=== PATIENT | male | born 2000 | race Caucasian/White ===

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

== ENCOUNTER 2021-02-02 06:09 | Emergency (ER) | payer MEDICAID ==
[~2021-02-02] VITALS: Ht 170.2 cm; Wt 80.4 kg
[2021-02-02 06:09] VITALS: BP 161/96
[2021-02-02] MEDS: LIDO:MAALOX 1:1 20 ML SINGLE DOSE. PO ONE (06:50)
--- NOTE | 2021-02-02 07:04 | PHYS DOC ---
Past History Past Medical History: Anxiety, GERD, Hypertension, MRSA, Other Additional Past Medical Histor: spinabiffida, poor circulation in legs, cant feel bilateral LE Past Surgical History: Other Additional Past Surgical Histo: twsted aorta repair & hole in spine repair at , BLL knee plates in/out Smoking: Non-smoker Alcohol Use: None Drug Use: None General Adult EDM: Chief Complaint: HEARTBURN/GI DISTRESS HPI: HPI: Patient is a 20 year old male who presents with symptoms of GERD, abdominal pain, and dyspnea with exertion. Patient arrived via EMS after experiencing "the worst GERD of his life" this morning. He has a history of "daily" GERD symptoms and reported feeling pain in is throat today. He reportedly took his Protonix and 2 Tums which he said did not relieve his pain. He now reports his throat pain has almost all resolved and reports 1/10 pain in throat. He also complains of generalized abdominal pain which he rates as 9/10 that is worse with palpation. He is concerned he may have a stomach ulcer although he reportedly has never received a scope or had a history of ulcers. Denies nausea, vomiting, constipation, blood or mucous in stools, dyspepsia, and diarrhea. He also complains of dyspnea with exertion over the past month when using his wheelchair. Review of Systems: Review of Systems: Constitutional: Denies fever or chills Eyes: Denies blurry vision or eye pain HENT: Reports sore throat, denies congestion Respiratory: Denies cough. Reports shortness of breath with exertion Cardiovascular: Denies chest pain or palpitations GI: Reports abdominal pain. Denies nausea, or vomiting Musculoskeletal: Denies back pain or joint pain Integument: Denies rash or skin lesions Neurologic: Denies headache, focal weakness or sensory changes Complete systems were reviewed and found to be within normal limits, except as documented in this note. Current Medications: Current Meds: Current Medications Medications (Trade) Dose Ordered Sig/Alex Start Time Stop Time Status Last Admin Dose Admin Multi-Ingredient Mouthwash/Gargle (Gi Cocktail) 20 ml 1X ONCE 02/02/21 07:00 02/02/21 07:01 02/02/21 06:50 20 ML Allergies: Allergies: Allergies Coded Allergies Type Severity Reaction Last Updated Verified latex Allergy Unknown 12/15/19 Yes Physical Exam: PE: Constitutional: Well developed, well nourished, no acute distress, non-toxic appearance HENT: Normocephalic, atraumatic Eyes: PERRL, EOMI, conjunctiva normal, no discharge Neck: Normal range of motion, no tenderness, supple Lungs & Thorax: No respiratory distress, equal chest rise and fall Abdomen: Soft. Reports mild increase of diffuse abdominal pain to palpation Skin: Warm, dry, no erythema, no rash Back: No tenderness, no CVA tenderness Extremities: No tenderness, ROM intact, no edema Neurologic: Alert and oriented X 3, normal motor function, normal sensory function, no focal deficits noted Psychologic: Affect normal, judgment normal Current Patient Data: Vital Signs: Vital Signs Date Time Temp Pulse Resp B/P (MAP) Pulse Ox O2 Delivery O2 Flow Rate FiO2 02/02/21 06:09 98.6 101 18 161/96 (117) 99 Room Air EKG: EKG: [] Radiology/Procedures: Radiology/Procedures: PROCEDURE: CHEST AP ONLY Exam Date: 02/02/2021 6:52 AM XR CHEST 1V Indication: Reason: "dyspnea", heartburn, hx of shunt / Spl. Instructions: / History: FINDINGS/ IMPRESSION: There is elevation of the right hemidiaphragm. Ventriculoperitoneal shunt catheter overlies the right hemidiaphragm. The cardiac silhouette and pulmonary vasculature are within normal limits. There is no focal consolidation, pleural effusion or pneumothorax. The visualized osseous structures are intact. Electronically signed by: Ramez Winston MD (02/02/2021 7:08 AM) [id number] Heart Score: C/O Chest Pain: N/A Course & Med Decision Making: Course & Med Decision Making Pertinent Imaging studies reviewed. (See chart for details) Symptomatic treatment performed with intermittent improvement of GERD and abdominal symptoms. Patient is hemodynamically stable and has no signs of perforated ulcer so was given instruction and contact information to follow-up with a GI physician for further abdominal pains. Patient had normal O2 saturations at >98%. CXR was performed to further assess patient's concerns of dyspnea with exertion and showed normal lung findings. Patient stable for discharge with outpatient follow-up with PCP. Discussed findings and plan with patient, who acknowledges understanding and agreement. Dragon Disclaimer: Artis Disclaimer: This electronic medical record was generated, in whole or in part, using a voice recognition dictation system. Departure Departure: Impression: Primary Impression: GERD (gastroesophageal reflux disease) Qualified Codes: K21.9 - Gastro-esophageal reflux disease without esophagitis Disposition: 01 DC HOME SELF CARE/HOMELESS Condition: STABLE Referrals: MUNDO DURHAM MD (PCP) CARLYLE CORDERO MD Patient Instructions: Gastritis, Adult, [id number] Scripts Sucralfate (CARAFATE) 1 Gm/10 Ml Oral.susp 10 ML PO QID for GERD, #1 L 0 Refills before food Prov: SARAH GROSSMAN DO 02/02/21 SARAH GROSSMAN DO Feb 02, 2021 07:04
--- NOTE | 2021-02-02 07:10 | RAD ---
Exam Date: 02/02/2021 6:52 AM XR CHEST 1V Indication: Reason: "dyspnea", heartburn, hx of shunt / Spl. Instructions: / History: FINDINGS/ IMPRESSION: There is elevation of the right hemidiaphragm. Ventriculoperitoneal shunt catheter overlies the right hemidiaphragm. The cardiac silhouette and pulmonary vasculature are within normal limits. There is no focal consolidation, pleural effusion or pneumothorax. The visualized osseous structures are intact. Electronically signed by: Ramez Winston MD (02/02/2021 7:08 AM) [id number]
[2021-02-02] MEDS ORDERED: SUCR1ORA5 PO (07:19)
== END 2021-02-02 08:03 | disposition home or self-care (01) ==
LOC: ER 06:09
DX: K21.9 Gastro-esophageal reflux disease without esophagitis (principal); F41.9 Anxiety disorder, unspecified; I10 Essential (primary) hypertension; Z86.14 Personal history of Methicillin resistant Staphylococcus aureus infection; Z91.040 Latex allergy status
CPT/HCPCS: 71045; 99283

== ENCOUNTER 2022-04-24 05:26 | Emergency (ER) | payer MEDICAID ==
[~2022-04-24] VITALS: Ht 157.5 cm; Wt 64.6 kg
[~2022-04-24 05:26] MED LIST changes: +SUCR1ORA5 PO
--- NOTE | 2022-04-24 05:40 | PHYS DOC ---
Past History Past Medical History: Anxiety, GERD, Hypertension, MRSA, Other Additional Past Medical Histor: spina bifida, MRSA (MEAGHAN DELANEY MD) Past Surgical History: Other Additional Past Surgical Histo: shunt, knee surgery x 2 (MEAGHAN DELANEY MD) Smoking: Non-smoker Alcohol Use: None Drug Use: None (MEAGHAN DELANEY MD) Adult General Chief Complaint Chief Complaint: HYPERTENSION HPI HPI Patient is a 22-year-old male with a past medical history of spina bifida with a [employer] shunt in place and hypertension who presents to the emergency department with a chief complaint of right arm tingling. States he woke up about an hour ago and had some tingling and numbness in his right arm that lasted several minutes and then went away. Denies any recent traumas, travels, illnesses, fevers, rash, chest pain, shortness of breath, abdominal pain, nausea, vomiting, diarrhea. Denies any dysuria, hematuria or blood in the stool. Denies any known ill contacts. Denies any confusion. Denies any facial droop or slurred speech. Denies headache, lightheadedness. States he has been eating and drinking normally for him. States he is making urine and stool normally for him. States he has not taken any of his medications include hypertension medications for 2 years as he took himself off of them. States he has not had a bowel movement in a week as well. (MEAGHAN DELANEY MD) Review of Systems Review of Systems Review of systems otherwise unremarkable except noted in HPI (MEAGHAN DELANEY MD) Allergies Allergies Allergies Coded Allergies Type Severity Reaction Last Updated Verified latex Allergy Unknown 12/15/19 Yes (MEAGHAN DELANEY MD) Physical Exam Physical Exam Constitutional: Well developed, well nourished, no acute distress, non-toxic appearance. [] HENT: Normocephalic, atraumatic, bilateral external ears normal, oropharynx moist, no oral exudates, nose normal. [] Eyes: PERRLA, EOMI, conjunctiva normal, no discharge. [] Neck: Normal range of motion, no tenderness, supple, no stridor. [] Cardiovascular:Heart rate regular rhythm, no murmur [] Lungs & Thorax: Bilateral breath sounds clear to auscultation [] Abdomen: soft, no tenderness, no masses, no pulsatile masses. [] Skin: Warm, dry, no erythema, no rash. [] Back: No tenderness, no CVA tenderness. [] Extremities: No tenderness, no cyanosis, no clubbing, ROM intact, no edema. [] Neurologic: Alert and oriented X 3, normal motor function, normal sensory function, patient has spina bifida and atrophied lower extremities but is moving at baseline per him, no focal deficits noted. [] Psychologic: Affect normal, judgement normal, mood normal. [] (MEAGHAN DELANEY MD) EKG EKG [] (MEAGHAN DELANEY MD) EKG EKG is interpreted at 0612 Rhythm is sinus Rate is 57 bpm Trona is normal marked artifact No STEMI (PRECIOUS YEAGER DO) Radiology/Procedures Radiology/Procedures [] (MEAGHAN DELANEY MD) Radiology/Procedures IMAGING REPORT Signed PATIENT: SAMREEN PEREZ ACCOUNT: [id number] : 2000 LOCATION: ER AGE: 22 SEX: M EXAM STATUS: REG ER ORD. PHYSICIAN: MEAGHAN DELANEY MD REASON: V/P shunt PROCEDURE: CT HEAD WO CONTRAST CT Head W/O Contrast: History: Reason: V/P shunt / Spl. Instructions: / History: Comparison: none Axial images were obtained without contrast. There is a right frontal ventricular shunt. The ventricular system is within normal limits in size however there is disorganization of the midline suggesting agenesis of the corpus callosum. There is old frontal and parietal craniotomies and there is encephalomalacia in the right parietal lobe which could have been from a previous posterior shunt. There is crowding of the foramen magnum and the fourth ventricle is considerably smaller. There is no mass effect, extraaxial fluid collections or hydrocephalus. There is no gross bleed. There is no focal loss of ceballos-white matter distinction to suggest acute ischemia, i.e. stroke. Impression: 1. Right ventricular shunt. 2. Agenesis of the corpus callosum. 3. Probable old right posterior shunt. 4. No acute findings. Comparison to an old study may be helpful. PQRS Compliance Statement: One or more of the following individualized dose reduction techniques were utilized for this examination: 1. Automated exposure control 2. Adjustment of the mA and/or kV according to patient size 3. Use of iterative reconstruction technique Electronically signed by: Manjit Grady III, MD (04/24/2022 6:31 AM) [facility] DICTATED AND SIGNED BY: MANJIT GRADY III, MD DATE: 04/24/22626 CC: MEAGHAN DELANEY MD; PRECIOUS YEAGER DO; MUNDO DURHAM MD ~ (PRECIOUS YEAGER DO) Heart Score C/O Chest Pain: No Risk Factors: Risk Factors: DM, Current or recent (<one month) smoker, HTN, HLP, family history of CAD, obesity. Risk Scores: Risk Factors: DM, Current or recent (<one month) smoker, HTN, HLP, family history of CAD, obesity. (MEAGHAN DELANEY MD) Course & Med Decision Making Course & Med Decision Making Patient is a 22-year-old male who presents emergency department with right upper extremity paresthesias Vital signs notable for hypertension. Physical exam noted above. Placed on the monitor with IV access established. Rest of patient's evaluation and disposition handed off to day team. (MEAGHAN DELANEY MD) Course & Med Decision Making This patient was initially seen by Dr. Delaney. Please see his note for details of H&P and HPI. I assumed care at [address] The patient[address] imaging was unremarkable, however there is no imaging study here for comparison. He self catheterizes for urine. UA demonstrates white blood cells, no bacteria. Urine culture is pending, I explained that I will not prescribe antibiotics at this time based on his current urine, but will wait for formal culture results. I told him he needs to follow-up with his primary care physician. He reports that he is got an appointment sometime within the next month. He does not member which hypertensive medication he was on previously, he has been off of these medications for 2 years. I will prescribe hydrochlorothiazide, he is given a 30-day supply. I told him to contact his PCP this week to arrange for close follow-up. He reports that he believes that his tingling symptoms related to a "panic attack." He reportedly has these frequently. He wants to know if his panic attack symptoms recur. It sounds like he has had some significant stress issues at home, he lives with his mother and his uncle, he does not get along with his uncle, he denies any physical abuse. He denies SI or HI symptoms. He reports he feels comfortable returning to his mother's home. I discussed all of the findings, differential diagnosis and plan of care with him. Return precautions are given. (PRECIOUS YEAGER DO) Dragon Disclaimer Dragon Disclaimer This electronic medical record was generated, in whole or in part, using a voice recognition dictation system. (MEAGHAN DELANEY MD) Departure Departure: Impression: Primary Impression: Paresthesia of arm Additional Impressions: Spina bifida Chronic hypertension Disposition: HOME / SELF CARE / HOMELESS Condition: STABLE Referrals: MUNDO DURHAM MD (PCP) Patient Instructions: Diet - 2 Gram Low Sodium Additional Instructions: Return to the ER for chest pain, shortness of breath, fall, head injury, worsening or more focal weakness, abdominal pain, vomiting, temperature 100.4 or higher or any other concerns. Take the prescription blood pressure medication as directed. Make sure you eat a low-sodium, heart healthy diet. Contact your primary care physician to arrange for close follow-up. If there is any need to give you antibiotics for your urine, you will be notified in about 48 hours, when your urine culture returns. In the meantime, there does not appear to be any indication for antibiotics based on your current urine result. Scripts Hydrochlorothiazide (HYDROCHLOROTHIAZIDE TABLET ) 25 Mg Tablet 25 MG PO DAILY for hypertension, #30 TAB 0 Refills Prov: PRECIOUS YEAGER DO 04/24/22 Problem Qualifiers Additional Impressions: Spina bifida Spinal region: unspecified Presence of hydrocephalus: unspecified hydrocephalus presence Qualified Codes: Q05.9 - Spina bifida, unspecified MEAGHAN DELANEY MD April 24, 2022 05:40 PRECIOUS YEAGER DO April 24, 2022 06:15
--- NOTE | 2022-04-24 06:34 | RAD ---
CT Head W/O Contrast: History: Reason: V/P shunt / Spl. Instructions: / History: Comparison: none Axial images were obtained without contrast. There is a right frontal ventricular shunt. The ventricular system is within normal limits in size ho wever there is disorganization of the midline suggesting agenesis of the corpus callosum. There is ol d frontal and parietal craniotomies and there is encephalomalacia in the right parietal lobe which co uld have been from a previous posterior shunt. There is crowding of the foramen magnum and the fourth ventricle is considerably smaller. There is no mass effect, extraaxial fluid collections or hydrocephalus. There is no gross bleed. Th ere is no focal loss of ceballos-white matter distinction to suggest acute ischemia, i.e. stroke. Impression: 1. Right ventricular shunt. 2. Agenesis of the corpus callosum. 3. Probable old right posterior shunt. 4. No acute findings. Comparison to an old study may be helpful. PQRS Compliance Statement: One or more of the following individualized dose reduction techniques were utilized for this examinat ion: 1. Automated exposure control 2. Adjustment of the mA and/or kV according to patient size 3. Use of iterative reconstruction technique Electronically signed by: Piotr Humphries III, MD (04/24/2022 6:31 AM) [facility]
--- NOTE | 2022-04-24 06:42 | RAD ---
CT chest abdomen and pelvis without contrast: History: Ventricular peritoneal shunt Axial helical images of the chest, abdomen and pelvis were obtained without IV contrast. Comparison: none CT chest without contrast: There is no mediastinal lymphadenopathy or hematoma. There is no hilar lymphadenopathy. There is a ventriculoperitoneal shunt on the right. Impression: No acute findings. End Impression CT ABDOMEN and pelvis without IV CONTRAST: Findings: There is a ventriculoperitoneal shunt on the right. The stomach is on the right. The right lobe of the liver is on the left. The spleen is on the right. The IVC is on the left. Most of the colon is on the left. There is no free fluid. There is ventricular peritoneal shunt on the right. There is air and stool sc attered throughout the colon. Liver: Unremarkable Spleen: Unremarkable Pancreas: Unremarkable Adrenal Glands: Unremarkable Kidneys: Unremarkable Evaluation of stomach and bowel is limited without oral contrast. Evaluation of solid organs is limit ed without IV contrast. There is no mass or lymphadenopathy. There is no free air. There is no free fluid. The bladder level thickening is likely hypertrophy. Impression: 1. Right-sided ventricular. Annual shunt. 2. Situs inversus 3. Constipation. End impression PQRS Compliance Statement: One or more of the following individualized dose reduction techniques were utilized for this examinat ion: 1. Automated exposure control 2. Adjustment of the mA and/or kV according to patient size 3. Use of iterative reconstruction technique Electronically signed by: Piotr Humphries III, MD (04/24/2022 6:39 AM) [facility]
[2022-04-24 06:45] LABS: BASO # 0.1 x10^3/uL (0.0-0.2); BASO % 1 % (0-3); EOS % 0 % (0-3); HEMATOCRIT 40.4 % (39.0-53.0); HEMOGLOBIN 13.6 g/dL (13.0-17.5); LYMPH # 1.6 x10^3/uL (1.0-4.8); LYMPH % 28 % (24-48); MEAN CORPUSCULAR HEMOGLOBIN 26 pg (25-35); MEAN CORPUSCULAR HGB CONC 34 g/dL (31-37); MEAN CORPUSCULAR VOLUME 77 fL (79-100); MONO % 16 % (0-9); NEUT # 3.3 x10^3uL (1.8-7.7); NEUT % 55 % (31-73); PLATELET COUNT 276 x10^3/uL (140-400); RED BLOOD COUNT 5.23 x10^6/uL (4.30-5.70); RED CELL DISTRIBUTION WIDTH 16.9 % (11.5-14.5); WHITE BLOOD COUNT 5.9 x10^3/uL (4.0-11.0)
[2022-04-24 06:54] LABS: CALCIUM 9.3 mg/dL (8.5-10.1); CREATININE 0.9 mg/dL (0.7-1.3); GFR 106.5; POTASSIUM 4.3 mmol/L (3.5-5.1)
[2022-04-24 07:00] LABS: ALBUMIN 3.4 g/dL (3.4-5.0); MAGNESIUM 2.3 mg/dL (1.8-2.4); TOTAL BILIRUBIN 0.2 mg/dL (0.2-1.0); TOTAL PROTEIN 6.9 g/dL (6.4-8.2)
[2022-04-24 07:43] LABS: BACTERIA,URINE 0 /HPF (0-FEW); CLARITY,URINE CLOUDY; COLOR,URINE YELLOW; GLUCOSE,URINE NEG (NEG); NITRITE,URINE NEG (NEG); SQUAMOUS EPITHELIAL CELL,UR FEW /LPF; UROBILINOGEN,URINE 0.2 mg/dL (0.2 mg/dL); WBC,URINE 20-40 /HPF (0-4)
[2022-04-24] MEDS ORDERED: HYDR-2145 PO (08:09)
[2022-04-24 08:20] VITALS: BP 147/75
== END 2022-04-24 08:20 | disposition home or self-care (01) ==
LOC: ER 05:26
DX: R20.2 Paresthesia of skin (principal); Q05.9 Spina bifida, unspecified; I10 Essential (primary) hypertension; F41.9 Anxiety disorder, unspecified; K21.9 Gastro-esophageal reflux disease without esophagitis; Z91.040 Latex allergy status
CPT/HCPCS: 36415; 70450; 71250; 74176; 80053; 81001; 83735; 84484; 85025; 87077; 87086; 87186; 93005; 99285